=== PATIENT | male | born 1990 | race African-American/Black ===

== ENCOUNTER 2019-09-27 12:27 | Emergency (ER) | payer MEDICAID, OTHER ==
[~2019-09-27] VITALS: Ht 177.8 cm; Wt 94.8 kg
[2019-09-27 12:30] VITALS: BP 112/66
--- NOTE | 2019-09-27 12:37 | NUR ---
PT AMBULATED TO ER BED 02
--- NOTE | 2019-09-27 12:40 | NUR ---
C/O NON-BLOODY DIARRHEA & LLQ ABD PAIN X "A FEW MONTHS" THAT HAS GOTTEN INCREASINGLY WORSE OVER THE LAST FEW DAYS. PT STATES HE HAS BEEN SEEN BY HIS PCP AND HAD LABWORK AND AN XRAY DONE AND WAS TOLD "NOTHING IS WRONG". ABDOMEN SOFT FLAT AND NON TENDER, BOWEL SOUNDS PRESENT X 4. PT DENIES N/V/FEVER. LBM THIS MORNING AND WAS "RUNNY DIARRHEA". PROVIDED PT WITH GOWN, BED IN LOW POSITION, SIDE RAIL UP X1.
[2019-09-27] MEDS ORDERED: NACL 0.9% 1,000 ML IV SCH (13:02)
[2019-09-27] MEDS ORDERED: KETOROLAC 30 MG/ML VIAL IVP ONE (13:05)
[2019-09-27] MEDS ORDERED: ALUMINUM HYD/MAG/SIMETHICONE 30 ML, DICYCLOMINE HCL LIQUID 20 MG, LIDOCAINE VISCOUS 2% ... PO ONE ×3 (13:05)
[2019-09-27] MEDS ORDERED: LIDOCAINE VISCOUS 2% 20 ML UDC ONE (13:11)
[2019-09-27] MEDS ORDERED: DICYCLOMINE HCL LIQUID 10 MG/5 ML UDC ONE (13:11)
[2019-09-27] MEDS ORDERED: ALUMINUM HYD/MAG/SIMETHICONE 30 ML UDC ONE ×2 (13:11→13:16)
--- NOTE | 2019-09-27 13:22 | NUR ---
LAB AT BEDSIDE
[2019-09-27 13:36] LABS: BASOPHILS # (AUTO) 0.1 K/uL (0.00-0.22); BASOPHILS % (AUTO) 1.1 % (0.0-2.0); HEMATOCRIT 45.1 % (36-52); HEMOGLOBIN 14.6 g/dL (12.0-18.0); LYMPHOCYTES # (AUTO) 1.9 K/uL (2.0-11.5); LYMPHOCYTES % (AUTO) 41.7 % (20.5-51.1); MEAN CORPUSCULAR HEMOGLOBIN 28 pg (27-31); MEAN CORPUSCULAR HGB CONC 32 g/dL (33-37); MEAN CORPUSCULAR VOLUME 87.3 fL (80-94); MONOCYTES # (AUTO) 0.5 K/uL (0.8-1.0); NEUTROPHILS # (AUTO) 2.1 K/uL (1.8-7.7); NEUTROPHILS % (AUTO) 45.2 % (42.2-75.2); PLATELET COUNT (AUTO) 172 K/uL (140-450); RED BLOOD CELL COUNT(AUTO) 5.17 MIL/uL (4.20-6.10); RED CELL DISTRIBUTION WIDTH 13.8 % (11.6-13.7); WHITE BLOOD COUNT (AUTO) 4.7 K/uL (4.8-10.8)
[2019-09-27 13:55] LABS: ALBUMIN 3.5 g/dL (3.4-5.0); ANION GAP 10.5 (8-16); CARBON DIOXIDE 28.8 mmol/L (21-32); CREATININE 1.2 mg/dL (0.6-1.3); POTASSIUM 4.3 mmol/L (3.5-5.1); TOTAL BILIRUBIN 0.2 mg/dL (0.0-1.0)
[2019-09-27 14:08] LABS: APPEARANCE,URINE SL CLOUDY (CLEAR); BILIRUBIN,URINE NEGATIVE (NEGATIVE); BLOOD, URINE NEGATIVE (NEGATIVE); COLOR,URINE YELLOW (YELLOW); LEUKOCYTE ESTERASE ,URINE NEGATIVE (NEGATIVE); NITRITE, URINE NEGATIVE (NEGATIVE); UGLUCOSE NEGATIVE (NEGATIVE)
--- NOTE | 2019-09-27 14:30 | NUR ---
pt resting in bed, no new needs at this time
[2019-09-27 15:10] VITALS: BP 121/70
--- NOTE | 2019-09-27 15:11 | NUR ---
Patient discharged with v/s stable. Written and verbal after care instructions given and explained. Patient alert, oriented and verbalized understanding of instructions. Ambulatory with steady gait. All questions addressed prior to discharge. ID band removed. Patient advised to follow up with PMD. Rx of lomotil, bentyl, ciprofloxacin given. Patient educated on indication of medication including possible reaction and side effects. Opportunity to ask questions provided and answered.
== END 2019-09-27 15:11 | disposition home or self-care (01) ==
LOC: MED 12:27
DX: K52.9 Noninfective gastroenteritis and colitis, unspecified (principal); F12.90 Cannabis use, unspecified, uncomplicated
CPT/HCPCS: 36415; 74176; 80053; 81003; 82150; 83690; 85025; 96361; 96374; 99284; J1885; J7030